=== PATIENT | male | born 1955 | race Caucasian/White ===

== ENCOUNTER 2020-05-24 08:00 | Outpatient (CLI) | payer BC ==
--- NOTE | 2020-05-24 15:44 | XRAY Report ---
PROCEDURE: Shoulder 3 View RT INDICATIONS: BICEPS TENDINITIS, RIGHT SHOULDER TECHNIQUE: 3 views of the shoulder were acquired. COMPARISON: None. FINDINGS: Bones: No fractures or dislocations. No suspicious bony lesions. Visualized ribs appear intact. M oderate periarticular osteophyte formation at the acromial clavicular and glenohumeral joints. Soft tissues: Calcifications project over the rotator cuff. IMPRESSION: 1. Acromial clavicular and glenohumeral joint osteoarthritis. 2. Probable calcific tendinitis of the rotator cuff. 3. Further assessment with MRI of the shoulder is recommended. Reviewed by: Jorge Alfaro MD on 05/24/2020 3:43 PM PDT Approved by: Jorge Alfaro MD on 05/24/2020 3:43 PM PDT Station ID: [id number]
== END 2020-05-24 23:59 | disposition home or self-care (01) ==
LOC: DI.S 08:00
PROVIDERS: ATTEND Emergency Medicine
DX: M19.011 Primary osteoarthritis, right shoulder (principal); M65.811 Other synovitis and tenosynovitis, right shoulder

== ENCOUNTER 2021-01-28 09:11 | Outpatient (CLI) | payer MEDICARE ==
[2021-01-28 10:00] VITALS: BP 136/85
--- NOTE | 2021-01-28 10:00 | SLEEP CARE CONSULTATION ---
Information from patient questionnaire entered by Troy Sebastian MA. I have reviewed and concur with the information entered by Troy Sebastian MA. This document represents the service I personally performed and the decisions made by , Leanne Navarro ARNP. History of Present Illness Service Date and Time: 01/28/2021 0911 Reason for Visit: New patient Chief Complaint: reports: Unrefreshed sleep, Snoring, Excessive daytime sleepiness, Fatigue, Frequent awakenings at night Date of Onset: ON AND OFF 2 YEARS Usual bedtime: 10:00 PM Time it takes to fall asleep: 5 MINUTES Snores at night: Yes Observed to quit breathing while asleep: No Number of times waking at night: 2-4 Reasons for waking at night: reports: Snoring, Bathroom (UNKNOWN), Other (unknown reasons) Toss, Turn, or Twitch while sleeping: Yes Recalls having dreams: Yes Usually gets out of bed at: 0700 Feels refreshed in the morning: No Morning headache: No Sleepy or fatigued during the day: Yes Ever fallen asleep while driving: No Takes day naps: Yes (3-4 times a week for 30-45 minutes) Dreams during day naps: Yes Prior sleep studies: No Additional HPI information: I had the pleasure of seeing EDGAR DUDLEY today regarding the possibility of him having a sleep disorder. His current complaints are snoring, excessive daytime sleepiness, fatigue, frequent night awakenings and unrefreshed sleep. he has been told for many years by different partners that he snores loudly. He states he does not consistently feel rested in the mornings. He wakes up frequently to use the bathroom and for other unknown reasons. - Parasomnia Symptoms Ever been unable to move upon waking from sleep: No Walks in sleep: No Talks in sleep: No Ever acted out dreams in sleep: No Ever felt weak in the knees when startled or emotional: No Bothered by creepy, crawly, restless sensations in legs: No Problems with memory or concentration: No Subjective Initial [place] Sleepiness Scale score: 5 (2020) Social History The patient's occupation is a [employer]. Patient is Single and lives in . Have you smoked in the past 12 months: No Alcohol use: Yes Alcohol amount and frequency: 1 X MONTH Caffeine use: Yes Caffeine amount and frequency: 2 X DAILY Family History Family history of sleep disordered breathing: No (don't know) Allergies and Home Medications Known drug allergies: No Drug allergies reviewed: Yes (NKDA) Home medication list reviewed: Yes (no daily medications) Allergy and home medication list: Multivitamin supplements Review of Systems Cardiovascular: reports: high blood pressure Urinary: reports: frequency Ear/Nose/Throat: reports: sinus problems (sinus polyps removed in 2015), tonsillectomy, wisdom teeth removed, other (HEARING AIDS). denies: injury to nose Endocrine: reports: increased urination Immunologic: reports: allergies to food or environment (seasonal/hay fever allergies) Physical Exam Vital signs obtained and entered by: IRON PICKARD Blood Pressure: 136/85 (left) Cuff size: wrist Heart Rate: 74 O2 Saturation: 98 (with mask) Height: 5 ft 9 in Weight: 252 lb (with clothes and boots) Body Mass Index: 37.2 BMI Classification: Obese Neck circumference: 18.1 (inches) Nostrils: patent to airflow Mouth and throat: narrow oropharynx Soft palate: long Hard palate: normal Uvula: long Uvula visualization: 50% Mallampati Class II Tongue: normal in size Tonsils: absent bilaterally Neck: normal w/o lymphadenopathy or thyromegaly Heart: regular rate and rhythm Lungs: clear bilaterally Impression and Plan 1. Suspected Obstructive Sleep Apnea-Hypopnea Syndrome, as suggested by a hi story of loud and irregular snoring, frequent awakening during the night, unrefreshed sleep, and excessive daytime sleepiness. Narrow oropharynx and obesity are common predisposing factors for obstructive sleep apnea-hypopnea syndrome. I recommend proceeding to polysomnography to confirm the diagnosis and to assess severity. If the patient has significant sleep disordered breathing, a manual CPAP titration study will also be performed to find the optimal treatment pressure. I informed the patient of what the sleep studies involve and after some discussion, obtained agreement to proceed. The pathophysiology of obstructive sleep apnea-hypopnea syndrome was discussed with the patient and health risks of cardiovascular and cerebrovascular disease if not treated. AAS brochure for obstructive sleep apnea-hypopnea syndrome given and reviewed. Risks of drowsy driving discussed in detail and patient advised to avoid long distance driving and to pin puller at the first sign of drowsiness. Patient agreed to plan. * Schedule polysomnography +- manual CPAP titration study and return in 1-2 weeks after the study to discuss result and initiate therapy. * Avoid long distance driving or driving when feeling sleepy. * Avoid alcohol, sedative and muscle relaxant around bedtime. * Attempt to lose weight. * Review instructions provided by trained office staff on how to prepare for the sleep study. * Return for follow-up after sleep study completed. Counseling Topics: Weight loss health impact Visit Type: In Office Time Spent with Patient (minutes): 30 Provider Statement: I spent 100% of the Face to Face Visit with the patient with greater than 50% spent counseling the patient and coordination of care.
== END 2021-01-28 09:12 | disposition home or self-care (01) ==
LOC: SC 09:11
PROVIDERS: ATTEND Nurse Practitioner Family
DX: G47.10 Hypersomnia, unspecified (principal); G47.8 Other sleep disorders; R06.83 Snoring; E66.9 Obesity, unspecified; Z68.37 Body mass index [BMI] 37.0-37.9, adult
CPT/HCPCS: 99203; G0463; 99212

== ENCOUNTER 2021-04-01 09:32 | Outpatient (CLI) | payer MEDICARE | END 2021-04-01 09:33 | disposition home or self-care (01) | LOC: SC 09:32 | PROVIDERS: ATTEND Nurse Practitioner Family | DX: G47.33 Obstructive sleep apnea (adult) (pediatric) (principal); R09.02 Hypoxemia; R00.0 Tachycardia, unspecified | CPT/HCPCS: G0399 ×2; 95806 ==

== ENCOUNTER 2021-04-12 11:09 | Outpatient (CLI) | payer MEDICARE ==
--- NOTE | 2021-04-12 11:29 | SLEEP CARE CONSULTATION ---
Information from patient questionnaire entered by Troy Sebastian MA. I have reviewed and concur with the information entered by Troy Sebastian MA. This document represents the service I personally performed and the decisions made by , Leanne aNvarro ARNP. History of Present Illness Service Date and Time: 04/12/2021 1100 Initial [place] Sleepiness Scale score: 5 (2020) Current [place] Sleepiness Scale score: 5 Additional HPI information: EDGAR DUDLEY returns via video Telehealth visit for follow up and results of the recently performed home sleep study. I explained the pathophysiology behind obstructive sleep apnea. We then spent quite a bit of time discussing different treatment options. For mild obstructive sleep apnea, surgery and oral appliance are alternatives to nasal CPAP therapy but in moderate or severe cases, nasal CPAP is the most effective and reliable treatment. Because apnea is primarily in supine position, then positional management therapy could be effective. Methods discussed such as positioning with pillows, using a T-shirt with tennis balls in the back, and shown commercial products that have a pillow format on back to prevent supine sleep. I reviewed the impact of weight changes on sleep apnea and strongly recommended losing weight. After some discussion, the patient opted to go with the nasal CPAP therapy. Nasal autoCPAP set at 4-15 cmH20 will be ordered with rationale explained. A manual titration study will be ordered if unable to find optimal pressure with office adjustments. I explained how CPAP machine works and what to expect when using the machine. Using CPAP every night in order to get used to it was emphasized. Patient advised to put CPAP mask on before getting into bed so as not to fall asleep without CPAP. To assist acclimation to CPAP use, it could also be used for a short time during day while reading or watching TV. The patient was instructed to call the CPAP supplier to discuss any mechanical problem that may occur. If the mask given is uncomfortable or is difficult to keep on through the night even with adjustment, contact the CPAP supplier as many will replace with another mask style if notified before 30 days. If snoring or perceives is not getting enough air or too much air from the machine, notify this office. Patient counseled not drink alcohol less than 4 hours before bedtime as it can increase snoring and apnea. Patient was cautioned about risks of drowsy driving until sleepiness symptoms resolve. Sleep Study - Results Type of Sleep Study: Home sleep study (F/U HOMESTUDY) Prior sleep studies: No Polysomnography/Home Sleep Study results: Physician Impression: The quality of the study is good. The length of the study is adequate (> 240 minutes). Please also see the tabulated and graphic data. 1. Obstructive Sleep Apnea-Hypopnea (ICD-10 G47.33), mild, with an AHI of 14.5/hr and luis SaO2 of 84%. During the study, the patient had 87 apneas (86 obstructive, 0 central, 1 mixed) and 38 hypopneas. The longest episode lasted 102.5 seconds. The patient did not sleep supine during this study (supine AHI was 0, and non-supine, 14.48). 2. Hypoxemia (ICD-10 R09.02), mild, with the lowest oxygen saturation of 84 % and 2.0 minutes with SaO2 under 90%. Baseline oxygen saturation was normal (Average oxygen saturation was 95%). 3. Tachycardia, with maximum recoded heart rate of 206 beats per minute but cannot be verified. Allergies and Home Medications Home medication list reviewed: Yes (no changes) Review of Systems Review of systems same as previous: Yes (no changes) Physical Exam Vital signs obtained and entered by: Telehealth visit Height: 5 ft 9 in Impression and Plan 1. Obstructive Sleep Apnea-Hypopnea Syndrome, mild, with lowest oxygen saturation of 84%. Obviously this is the cause of the patients symptoms of unrefreshed sleep, and excessive daytime sleepiness. As mentioned above, the patient will be started on nasal autoCPAP therapy with pressure set at 4-15 cmH2 O. Compliance guidelines also reviewed. A copy of compliance guidelines will be given for reference at check out. Because the apnea is more severe supine, I instructed to avoid sleeping supine using pillow positioning until able to start CPAP use. 2. Hypoxemia, mild, with the lowest oxygen saturation of 84 % and 2.0 minutes with SaO2 under 90%. His baseline oxygen saturation was normal with an average oxygen saturation of 95%. 3. Tachycardia, with maximum recorded heart rate of 206 beats per minute but could not be verified during the study. Recommend patient follow up with PCP for further evaluation. * Nasal auto CPAP therapy, pressure at 4-15 cm H2O. * Follow up with PCP about possible tachycardia noted on HST * Attempt to lose weight. * Avoid alcohol consumption near bedtime. * Avoid supine sleep until using CPAP. * The patient is again cautioned about driving until sleepiness completely res olves. * Return one month after CPAP obtained. I will assess response to therapy and compliance at that time. Counseling Topics: Sleeping position, Weight loss health impact Visit Type: Telehealth Video Video Type: VSee Patient Location: Home Location of Provider: Office Patient agrees and consents to this telehealth visit type: Yes Patient agrees to have their insurance billed: Yes Time Spent with Patient (minutes): 22 Provider Statement: I spent 100% of the Telehealth Video Call with the patient with greater than 50% spent counseling the patient and coordination of care.
== END 2021-04-12 11:10 | disposition home or self-care (01) ==
LOC: SC 11:09
PROVIDERS: ATTEND Nurse Practitioner Family
DX: G47.33 Obstructive sleep apnea (adult) (pediatric) (principal); R09.02 Hypoxemia; R00.0 Tachycardia, unspecified

== ENCOUNTER 2021-06-22 10:34 | Outpatient (CLI) | payer MEDICARE ==
[2021-06-22 10:55] VITALS: BP 144/88
--- NOTE | 2021-06-22 10:55 | SLEEP CARE CONSULTATION ---
Information from patient questionnaire entered by Troy Sebastian MA. I have reviewed and concur with the information entered by Troy Sebastian MA. This document represents the service I personally performed and the decisions made by , Leanne Navarro ARNP. History of Present Illness Service Date and Time: 06/22/2021 1040 Previous diagnosis: Mild, Obstructive Sleep Apnea-Hypopnea Syndrome AHI: 14.5 (in 2021) Reason for follow up: first compliance (SET UP DATE05/18/21, FIRST COMPLIANCE, RESMED,) Equipment type: CPAP Equipment obtained from: Other ([facility]; getting supplies as needed) Mask style: Nasal Mask brand: Resmed Backup mask available: No (will keep old mask when replaced) Last cushion change: 2 weeks Prior sleep studies: No Type of Sleep Study: Home sleep study (F/U HOMESTUDY) HPI additional information: EDGAR DUDLEY was diagnosed to have mild, AHI 14.5, obstructive sleep apnea-hypopnea syndrome and returns via video telehealth visit today for CPAP therapy first compliance follow-up. Sleep Study - Results Type of Sleep Study: Home sleep study (F/U HOMESTUDY) Prior sleep studies: No CPAP Compliance Data - Data Reviewed with Patient Average duration of nightly device use: 7 HOURS 41 MINUTES Compliance rate %: 100 Current pressure setting (cmH2O): 4-15 (median 9.9, avg 10.9, max 11.6) Average residual AHI: 1.3 Central apnea: .3 Obstructive apnea: .2 Average large leak: 13.4 Subjective Patient concerns: denies: aerophagia, mask discomfort, air blowing in eyes, mask leak noise, condensation in mask/hose, nasal congestion, dry mouth, nose, throat, epistaxis, other Observed to snore while using device: No Current pressure setting perceived as: comfortable On therapy, patient: reports: sleeping better, awakening more refreshed, being more awake and alert during the day, more rested overall. denies: drowsiness while driving Initial [place] Sleepiness Scale score: 5 (2020) Current [place] Sleepiness Scale score: 3 Allergies and Home Medications Home medication list reviewed: Yes (no changes) Review of Systems Review of systems same as previous: Yes (no changes) Physical Exam Vital signs obtained and entered by: Drew SEBASTIAN CMA [facility] Blood Pressure: 144/88 (per patient) Height: 5 ft 7 in Weight: 250 lb (with clothes) Body Mass Index: 39.1 BMI Classification: Obese Impression and Plan 1. Obstructive Sleep Apnea-Hypopnea Syndrome, mild, with excellent treatment compliance and good apnea control. On CPAP therapy, the patient has better sleep quality and is more rested overall. The patients pressure will be changed to autoCPAP 10-12 cmH20 to reflect pressures being used. Patient advised to contact me if pressure change is uncomfortable so that it can be adjusted. Goals for apnea control discussed. Patient's apnea severity and rationale for treatment to reduce apnea, improve sleep quality and reduce cardiovascular and cerebrovascular events was reviewed. * Change auto CPAP pressure to 10-12 cmH2O * Notify me if snoring with mask or feeling that the pressure is too much or too little * Call this office if any problems using CPAP * Return for follow up in 1-2 months, or sooner if concerns arise Counseling Topics: Spare mask Visit Type: Telehealth Video ([phone] HOME,) Video Type: Doximity Patient Location: Home Location of Provider: Office Patient agrees and consents to this telehealth visit type: Yes Patient agrees to have their insurance billed: Yes Time Spent with Patient (minutes): 20 Provider Statement: I spent 100% of the Telehealth Video Call with the patient with greater than 50% spent counseling the patient and coordination of care.
== END 2021-06-22 10:35 | disposition home or self-care (01) ==
LOC: SC 10:34
PROVIDERS: ATTEND Nurse Practitioner Family
DX: G47.33 Obstructive sleep apnea (adult) (pediatric) (principal); E66.9 Obesity, unspecified; Z68.39 Body mass index [BMI] 39.0-39.9, adult